=== PATIENT | male | born 2000 | race Caucasian/White ===

== ENCOUNTER 2020-12-29 09:51 | Outpatient (CLI) | payer BC | END 2020-12-29 09:52 | disposition home or self-care (01) | LOC: TBSIIMAG 09:51 | PROVIDERS: ATTEND Orthopaedic Surgery | DX: M25.561 Pain in right knee (principal); S83.511A Sprain of anterior cruciate ligament of right knee, initial encounter; S83.271A Complex tear of lateral meniscus, current injury, right knee, initial encounter; M25.461 Effusion, right knee; S80.01XA Contusion of right knee, initial encounter ==